=== PATIENT | male | born 1990 | race Caucasian/White ===

== ENCOUNTER 2020-06-11 22:20 | Emergency (ER) | payer BC ==
[~2020-06-11] VITALS: Ht 198.1 cm; Wt 195.0 kg
[~2020-06-11 22:20] MED LIST: AMOXICILLIN500 MG PO; CATAFLAM50 MG PO; NKHM; PEPCID20 MG PO; PRILOSEC20 M1 PO
[2020-06-11] MEDS ORDERED: PREDNISONE20 M1 PO (23:40)
[2020-06-11] MEDS ORDERED: CYCLOBENZAPRINE10 MG PO (23:40)
[2020-06-11] MEDS ORDERED: IBU800 MG PO (23:40)
== END 2020-06-11 23:55 | disposition home or self-care (01) ==
LOC: ED 22:20
DX: M62.830 Muscle spasm of back (principal); F17.210 Nicotine dependence, cigarettes, uncomplicated; Z88.8 Allergy status to other drugs, medicaments and biological substances; Z79.899 Other long term (current) drug therapy

== ENCOUNTER 2024-04-10 04:29 | Emergency (ER) | payer BC ==
[~2024-04-10 04:29] MED LIST changes: +CYCLOBENZAPRINE10 MG PO; +IBU800 MG PO; +PREDNISONE20 M1 PO
[2024-04-10] MEDS ORDERED: Acetaminophen/Oxycodone 5 MG/325 MG TABLET PO ONE (04:40)
[2024-04-10] MEDS ORDERED: Ondansetron Hydrochloride 4 MG TAB SL ONE (04:40)
[2024-04-10] MEDS ORDERED: PENICILLIN V POTASSIUM 500 MG TAB PO ONE (04:40)
[2024-04-10] MEDS ORDERED: PENICILLIN VK500 MG PO (04:43)
== END 2024-04-10 04:57 | disposition home or self-care (01) ==
LOC: ED 04:29
DX: K02.9 Dental caries, unspecified (principal); F17.290 Nicotine dependence, other tobacco product, uncomplicated; Z88.8 Allergy status to other drugs, medicaments and biological substances; Z98.890 Other specified postprocedural states

== ENCOUNTER 2024-06-29 11:42 | Emergency (ER) | payer OTHER ==
[~2024-06-29] VITALS: Ht 198.1 cm; Wt 192.8 kg
[~2024-06-29 11:42] MED LIST changes: +PENICILLIN VK500 MG PO
[2024-06-29 12:12] LABS: URINE AMPHETAMINES Negative (1000ng/ml); URINE BARBITURATES Negative (200ng/ml); URINE BENZODIAZEPINES Negative (200ng/ml); URINE CANNABINOIDS (THC) Negative (50ng/ml); URINE COCAINE Negative (300ng/ml); URINE METHADONE Negative (300ng/ml); URINE OPIATES Negative (300ng/ml); URINE PHENCYCLIDINE Negative (25ng/ml)
== END 2024-06-29 13:30 | disposition home or self-care (01) ==
LOC: ED 11:42
PROVIDERS: Internal Medicine
DX: M25.512 Pain in left shoulder (principal); R07.81 Pleurodynia; M79.622 Pain in left upper arm; F17.210 Nicotine dependence, cigarettes, uncomplicated; Z88.8 Allergy status to other drugs, medicaments and biological substances; Z98.890 Other specified postprocedural states; V86.55XA Driver of 3- or 4- wheeled all-terrain vehicle (ATV) injured in nontraffic accident, initial encounter; Y93.I9 Activity, other involving external motion; Y92.488 Other paved roadways as the place of occurrence of the external cause; Y99.0 Civilian activity done for income or pay

== ENCOUNTER 2025-02-19 14:49 | Emergency (ER) | payer OTHER ==
[~2025-02-19] VITALS: Ht 198.1 cm; Wt 186.0 kg
== END 2025-02-19 15:38 | disposition home or self-care (01) ==
LOC: ED 14:49
DX: Z04.1 Encounter for examination and observation following transport accident (principal); Z88.8 Allergy status to other drugs, medicaments and biological substances; Z87.891 Personal history of nicotine dependence; V63.5XXA Driver of heavy transport vehicle injured in collision with car, pick-up truck or van in traffic accident, initial encounter; Y93.89 Activity, other specified; Y92.89 Other specified places as the place of occurrence of the external cause; Y99.8 Other external cause status